=== PATIENT | male | born 1990 | race Caucasian/White ===

== ENCOUNTER 2019-01-01 11:30 | Emergency (ER) | payer MEDICAID, SELFPAY ==
[2019-01-01 11:30] VITALS: BP 147/87; PULSE 77; RESP 16; TEMP 36.8; O2SAT 98; BMI 25.2
--- NOTE | 2019-01-01 11:55 | ED.VISSUMM ---
- ER Visit Summary Date of Service: 01/01/19 Chief Complaint: Right hand pain History of Present Illness: The patient is a 28 M presents with pain in his right hand that has been getting worse over the past 3 days. Patient had a laceration to his right hand that was closed 1 week ago. Patient states the pain and swelling has gotten worse over the past 3 days. Patient states the pain is worse with certain movements. Patient denies any paresthesias or weakness. Patient describes the pain as throbbing. Patient denies any fevers or chills. Physical Examination: Vital signs are stable. Patient is afebrile. Patient is in no acute distress. Skin is warm dry. There is a healing laceration over the dorsal aspect of the right distal third metacarpal. There is some surrounding erythema. There is no discharge or drainage. There is tenderness over this area. Sensation is intact to light touch in all digits. Capillary refill was less than 2 seconds in all digits. The remaining physical exam is within normal limits. Emergency Department Course and Treatment: There were 3 sutures in the laceration of the right hand. These were removed without difficulty. She was given a dose of ibuprofen and Keflex here. Patient was given a prescription for Keflex. Patient was instructed to keep the wound clean. Patient was instructed to follow-up with his primary care physician in 5-7 days. Patient understood and was agreeable with the plan. All questions were answered. Disposition: Discharge home Impression: Infected wound right hand This note was generated with [employer] dictation software. It may contain incorrect words, spelling, and punctuation that were not noted in review of the chart prior to signing ED Disposition - Plan for ED Patient: Disposition: Home or Assisted Living Diagnosis: Wound infection, posttraumatic Instructions: ED Infec Skin Cellulitis Prescriptions: Cephalexin [Keflex] 500 mg PO Q6 #40 cap Referrals: Jarett Davis MD [Primary Care Provider] - 5-7 Days
--- NOTE | 2019-01-01 12:01 | ED.DCSUM_ITS ---
- ER Visit Summary Date of Service: 01/01/19 Chief Complaint: Right hand pain History of Present Illness: The patient is a 28 M presents with pain in his right hand that has been getting worse over the past 3 days. Patient had a laceration to his right hand that was closed 1 week ago. Patient states the p ain and swelling has gotten worse over the past 3 days. Patient states the pain is worse with certain movements. Patient denies any paresthesias or weakness. Patient describes the pain as throbbing. Patient denies any fevers or chills. Physical Examination: Vital signs are stable. Patient is afebrile. Patient is in no acute distress. Skin is warm dry. There is a healing laceration over the dorsal aspect of the right distal third metacarpal. There is some surrounding erythema. There is no discharge or drainage. There is tenderness over this area. Sensation is intact to light touch in all digits. Capillary refill was less than 2 seconds in all digits. The remaining physical exam is within normal limits. Emergency Department Course and Treatment: There were 3 sutures in the laceration of the right hand. These were removed without difficulty. She was given a dose of ibuprofen and Keflex here. Patient was given a prescription for Keflex. Patient was instructed to keep the wound clean. Patient was instructed to follow-up with his primary care physician in 5-7 days. Patient understood and was agreeable with the plan. All questions were answered. Disposition: Discharge home Impression: Infected wound right hand This note was generated with [facility] dictation software. It may contain incorrect words, spelling, and punctuation that were not noted in review of the chart prior to signing ED Disposition - Plan for ED Patient: Disposition: Home or Assisted Living Diagnosis: Wound infection, posttraumatic Instructions: ED Infec Skin Cellulitis Prescriptions: Cephalexin [Keflex] 500 mg PO Q6 #40 cap Referrals: Jarett Davis MD [Primary Care Provider] - 5-7 Days
[2019-01-01] MEDS: Ibuprofen 600 MG Tablet PO (12:06)
[2019-01-01] MEDS: Cephalexin 250 MG Capsule 500 MG PO (12:07)
== END 2019-01-01 12:10 | disposition home or self-care (01) ==
PROVIDERS: Emergency Provider Emergency Medicine
DX: S61.411A Laceration without foreign body of right hand, initial encounter (principal); L08.9 Local infection of the skin and subcutaneous tissue, unspecified; X58.XXXA Exposure to other specified factors, initial encounter; Y93.9 Activity, unspecified; Y92.9 Unspecified place or not applicable; Y99.9 Unspecified external cause status; Z72.0 Tobacco use
CPT/HCPCS: 99284

== ENCOUNTER 2019-06-28 23:42 | Emergency (ER) | payer SELFPAY ==
[2019-06-28 23:43] VITALS: BP 149/82; PULSE 88; RESP 18; TEMP 36.8; O2SAT 97; BMI 25.4
--- NOTE | 2019-06-28 23:59 | ED.VIS.GEN ---
History of Present Illness Chief Complaint: Back Narrative: Patient is a 29-year-old male who presents with lower back pain. He was weed eating and fell yesterday. Since that time he complains of left lower back pain with radiation into the left buttock. This is worse with movement. He is able to ambulate. No numbness tingling or weakness. No fevers abdominal pain prior back surgeries IV drug abuse urinary retention or fecal incontinence. Past Medical History - Allergies and Home Meds Allergies/Adverse Reactions: Allergies tramadol Allergy (Verified 06/28/19 23:45) Hives Primary Care Physician: Care Physician,No Primary [Primary Care Provider] - Past Medical History: None Smoking Status: Current every day smoker Review of Systems All systems negative except as indicated General: Denies: Fever Cardiovascular: Denies: Chest pain Respiratory: Denies: Dyspnea Gastrointestinal: Denies: Abdominal pain, Nausea, Vomiting Musculoskeletal: Reports: Back pain Physical Exam Vital Signs/Narrative: Vital Signs Temp Pulse Resp BP Pulse Ox 06/28/19 23:43 98.3 F 88 18 149/82 H 97 Inital Vital Signs reviewed: Yes General: Well nourished Head: Normocephalic Eyes: EOMI ENT: Moist mucous membranes Neck: Supple Cardiovascular: Regular rate Respiratory: No distress Abdomen: Soft Back: - - Paraspinal left lumbar tenderness Extremities: - - Normal strength and sensation of the lower extremities with normal dorsiflexion, plantarflexion, EHL, brisk capillary refill, negative straight leg raise Skin: Normal color Neurological: Alert Psychological: Normal affect Diagnostic/Tx/Re-eval Impressions Lumbar Spine X-Ray 06/29/19 00:20 IMPRESSION: Lumbar spine spondylosis no fractures Electronically Signed: Andrew Soliman, at 2:07 EDT Tel , Service support , 06/29/19 00:20 Lumbar Spine 2 or 3 Views [RAD] Stat - Medical Decision Making X-rays as above negative for acute fracture. Patient was given naproxen here without significant relief of symptoms. He was also given prednisone. He will be given prescriptions for both but was also advised on supportive care. At this time he does not have signs or symptoms consistent with acute surgical pathology such as epidural abscess or cauda equina syndrome. He was advised to follow-up as an outpatient and understands to return for new or worsening symptoms. He was discharged. ED Disposition - Plan for ED Patient: Disposition: Home or Assisted Living Diagnosis: Lumbosacral strain, Sciatica Instructions: BACK PAIN w/ SCIATICA, Back Sprain/Strain Prescriptions: Naproxen [Naprosyn] 500 mg PO BID #20 tab Prescription Printed predniSONE tablet 60 mg PO DAILY #12 tab Prescription Printed Referrals: Care Physician,No Primary [Primary Care Provider] -
--- NOTE | 2019-06-29 00:20 | RAD_ITS ---
STUDY: X-RAY - LUMBAR SPINE REASON FOR EXAM: Male, 29 years old. Back pain, trauma TECHNIQUE: AP and lateral view(s) of the lumbar spine were obtained. COMPARISON: CT abdomen and pelvis 11/27/2016 FINDINGS: Normal lumbar lordosis. There is no substantial scoliosis. There is a normal alignment of the vertebrae. There are no fractures. There are stable small Schmorl's node inferior endplate of L4. The soft tissue structures are unremarkable. There is a small lumbar spine osteophyte. RAD/Lumbar Spine 2 or 3 Views IMPRESSION: Lumbar spine spondylosis no fractures Electronically Signed: Andrew Soliman, at 2:07 EDT Tel , Service support ,
[2019-06-29] MEDS: Naproxen 500 MG Tablet PO (00:31)
[2019-06-29] MEDS: predniSONE 20 MG Tablet 60 MG PO (02:24)
[2019-06-29 02:26] VITALS: BP 145/80; PULSE 77; RESP 16; O2SAT 97
== END 2019-06-29 02:34 | disposition home or self-care (01) ==
PROVIDERS: Emergency Provider Emergency Medicine
DX: S39.012A Strain of muscle, fascia and tendon of lower back, initial encounter (principal); M54.42 Lumbago with sciatica, left side; W19.XXXA Unspecified fall, initial encounter; Y93.H2 Activity, gardening and landscaping; Y92.9 Unspecified place or not applicable; Y99.9 Unspecified external cause status; Z88.8 Allergy status to other drugs, medicaments and biological substances; F17.200 Nicotine dependence, unspecified, uncomplicated
CPT/HCPCS: 72100; 99283

== ENCOUNTER 2022-02-03 01:39 | Emergency (ER) | payer MEDICAID, SELFPAY ==
[2022-02-03 01:40] VITALS: BP 138/86; PULSE 78; RESP 16; TEMP 36.8; O2SAT 98; BMI 26.4
--- NOTE | 2022-02-03 01:44 | RAD_ITS ---
EXAM: XR LEFT HAND COMPLETE, 3 OR MORE VIEWS CLINICAL INDICATION: injury TECHNIQUE: Frontal, lateral and oblique views of the left hand. This report was created using [employer] report generation technology. COMPARISON: 09/08/2016. FINDINGS: BONES/JOINTS: Old fifth metacarpal fracture. Preservation of the joint space. No sclerotic or destructive changes observed. SOFT TISSUES: Unremarkable. No soft tissue swelling or gas. No radiopaque foreign body. RAD/Hand Min 3 Views IMPRESSION: 1. Old fifth metacarpal fracture. 2. No acute abnormality. Electronically Signed: Perry Luke MD at 2:15 EDT ,
--- NOTE | 2022-02-03 01:54 | EX.ED.DYSGE1 ---
HPI History of Present Illness Chief Complaint: Wound Informant: patient Onset/Context/Timing Onset: Yesterday Current Severity: Moderate Maximum Severity: Moderate Narrative Narrative: Patient presents secondary to puncture wound in his left hand. He was trying to remove a screw from a deck board around 9 PM last evening. He put his hand around the screw and tried to use a hammer to knock the screw out. The end of the screw bent and punctured into his left hand in the webspace between his thumb and index finger on the palmar surface. He has increased pain and swelling to this area. He is right-hand dominant. He is unsure of his last tetanus update. [facility] Medical History Anxiety GERD (gastroesophageal reflux disease) Irregular heart beat Kidney stones Smoker Home Medications cephalexin 500 mg PO Q6 #40 cap 02/03/22 [Rx Last Taken Unknown] hydrocodone-acetaminophen 1 tab PO Q6H PRN 3 Days #10 tab 02/03/22 [Rx Last Taken Unknown] sulfamethoxazole-trimethoprim [Bactrim DS] 1 tab PO BID #20 tab 02/03/22 [Rx Last Taken Unknown] Allergy/AdvReac Type Severity Reaction Status Date / Time tramadol Allergy Hives Verified 06/28/19 23:45 Social History Smoking Status: Current every day smoker tobacco type: cigarettes ROS ROS ED Constitutional Constitutional ED: Denies chills or fever(s) Eyes Eyes: Denies change in vision ENT ENT ED: Denies sore throat Cardiovascular Cardiovascular: Denies chest pain Respiratory/Chest Respiratory/Chest: Denies cough or dyspnea Gastrointestinal Gastrointestinal: Denies abdominal pain, nausea or vomiting Musculoskeletal Musculoskeletal: Reports arthralgias; Denies back pain or neck pain Integumentary Reports other Details: Puncture wound left hand ; Denies rash Neurologic Neurologic: Denies headache(s), paresthesias or weakness Allergic/Immunologic Allergic/Immunologic ED: Denies urticaria EXAM Physical Exam Const Vital Signs: 02/03/22 01:40 Temperature 98.3 F Temperature Source Oral Pulse Rate 78 Respiratory Rate 16 Blood Pressure 138/86 H Blood Pressure Mean 103 Pulse Ox 98 Oxygen Delivery Method Room Air Positive well nourished and well developed General Appearance ED: well developed HEENT Reports moist mucous membranes Eyes PERRL and EOMs intact bilaterally Neck supple Chest Wall inspection of chest normal and palpation of chest normal Resp normal respiratory effort and clear to auscultation bilaterally Cardio regular rate and regular rhythm GI non-tender Palpation: soft Extremity Extremity Narrative: Puncture wound on the palmar surface of the left hand in the webspace between the thumb and index finger. Hematoma noted to this area. I am able to passively flex and extend the thumb and index finger with mild pain. Good cap refill and sensation distally. Neuro oriented x3 Sensorium / Orientation: alert Psych mental status grossly normal MDM MDM MDM Narrative Medical decision making narrative: Patient given Prospect for pain. Left hand x-rays obtained. Patient's left hand soaked in Shur-Clens and saline. Radiography Diagnostic Testing: Clinical Impression(s) from Imaging Studies Hand X-Ray 02/03/22 01:44 IMPRESSION: 1. Old fifth metacarpal fracture. 2. No acute abnormality. Electronically Signed: Perry Luke MD at 2:15 EDT , Treatment and Re-Evaluation Narrative: X-ray per mitral rotation reveals soft tissue swelling but no evidence of foreign body. No acute fracture. Radiologist interpretation also reviewed. Wound is cleansed and dressed. He is given instructions on proper elevation and wound care. He will be treated with Bactrim and Keflex along with Prospect for pain. Return instructions provided. Patient referred to orthopedics for follow-up as needed. Discharge Plan Triage Chief Complaint: Wound ED Provider: Mar Irene Dx/Rx/DC Orders Clinical Impression: Puncture wound of hand, left Instructions: ED Puncture Wound (General) Prescriptions: New hydrocodone-acetaminophen 5-325 mg tablet 1 tab PO Q6H PRN (Reason: pain) 3 Days Qty: 10 RF: 0 sulfamethoxazole-trimethoprim [Bactrim DS] 800-160 mg tablet 1 tab PO BID Qty: 20 RF: 0 cephalexin 500 mg capsule 500 mg PO Q6 Qty: 40 RF: 0 Primary Care Provider: Care Physician,No Primary Referrals: Joe Mclean MD [STAFF PHYSICIAN] - As Needed Care Physician,No Primary [Primary Care Provider] - Disposition Disposition: Home, Self Care
[2022-02-03] MEDS: HYDROcodone Bitartrate/Apap 5/325 Tablet PO (01:55)
[2022-02-03] MEDS: Diphth,Pertuss(Acell),Tet Vac 0.5 ML Vial IM (01:56)
[2022-02-03] MEDS: Cephalexin 250 MG Capsule 500 MG PO (02:44)
[2022-02-03] MEDS: Smz/Tmp Ds Tablet 1 TABLET PO (02:44)
[2022-02-03 02:50] VITALS: BP 129/78; PULSE 74; RESP 16; O2SAT 97
== END 2022-02-03 02:51 | disposition home or self-care (01) ==
PROVIDERS: Emergency Provider Emergency Medicine; Visit Provider Emergency Medicine
DX: S61.432A Puncture wound without foreign body of left hand, initial encounter (principal); W26.8XXA Contact with other sharp object(s), not elsewhere classified, initial encounter; Z23 Encounter for immunization; K21.9 Gastro-esophageal reflux disease without esophagitis; F17.210 Nicotine dependence, cigarettes, uncomplicated; Z79.899 Other long term (current) drug therapy
CPT/HCPCS: 73130; 90715; 99283